=== PATIENT | female | born 1990 | race Caucasian/White ===

== ENCOUNTER 2018-06-23 17:37 | Inpatient (IN) ==
[2018-06-23] MEDS ORDERED: Naloxone Inj 0.4 MG/ML Vial IV.PUSH ONE (18:48)
[2018-06-23] MEDS ORDERED: Sod Chloride 0.9% Inj 1,000 ML IV.SIG SCH ×3 (19:00→21:45)
--- NOTE | 2018-06-23 19:04 | XR ---
EXAM DATE: 06/23/2018 7:02 PM EDT AGE/SEX: 28 years / Female INDICATIONS: Possible drug overdose and temperature 102. CLINICAL DATA: This is the patient's initial encounter. Patient reports that signs and symptoms have been present for 1 day and indicates a pain score of 0/10. MEDICAL/SURGICAL HISTORY: None. None. COMPARISON: . FINDINGS: A single AP view of the chest demonstrates the lungs to be symmetrically aerated without evidence of mass, infiltrate or effusion. The cardiomediastinal contours are unremarkable. Osseous structures a re intact. CONCLUSION: Negative examination. Electronically signed by: Twan Quiñonez MD 06/23/2018 7:03 PM EDT
--- NOTE | 2018-06-23 19:21 | ED ---
HPI General Chief complaint: Overdose Stated complaint: poss overdose/evac Time Seen by Provider: 06/23/18 18:05 Source: patient, family and EMS Mode of arrival: EMS Limitations: no limitations History of Present Illness HPI narrative: Patient is a 28-year-old female presenting to the emergency department for evaluation of a possible overdose per EMS. On initial evaluation patient is reporting head, chest pain. She reports fatigue and body aches, shortness of breath, nausea vomiting. She states this started a few hours prior to arrival. She admits to using IV heroin 20 minutes prior to arrival. Patient last used heroin this morning. Patient does not quantify her pain. Symptom onset was fairly sudden, symptoms are moderate in nature. Patient denies any other medical history. Onset (ago): hour(s) Severity: moderate Quality: aching Pain Consistency: constant Associated symptoms: chest pain, fever/chills, headaches, malaise, nausea/ vomiting, shortness of breath and weakness Treatments prior to arrival: none Related Data Home Medications Medication Instructions Recorded Confirmed No Known Home Medications 06/23/18 06/23/18 Allergies Allergy/AdvReac Type Severity Reaction Status Date / Time Fish Containing Products Allergy Severe itching Verified 06/23/18 19:39 and rash hydromorphone Allergy Severe Rash, Verified 06/23/18 19:39 Generalized morphine Allergy Severe localized Verified 06/23/18 19:39 itching and rash ondansetron Allergy Severe itching Verified 06/23/18 19:39 penicillin G Allergy Severe Swelling Verified 06/23/18 19:39 red dye Allergy Severe Rash, Verified 06/23/18 19:39 Generalized Review of Systems ROS: all other systems reviewed are negative [facility] Medical History Medical History Patient denies medical problems (Acute) Social History Social History Substance History: Active Abuse Smoking Status: Current every day smoker Tobacco Type: Cigarettes How Often Do You Have a Drink Containing Alcohol: 2 to 3 times a week Substance Abuse Detail Heroin: Substance Use Status: Active Route Used Substance Abuse: Intravenously Immunization History Tetanus Immunization: Unsure Hx Influenza Vaccine This Season: No Exam Narrative Exam Narrative: GENERAL: Well-developed, well-nourished, drowsy but arousable female. Presenting in no acute distress. SKIN: Focused skin assessment warm/dry. HEAD: Atraumatic. Normocephalic. EYES: Pupils equal and round. No scleral icterus. No injection or drainage. ENT: No nasal bleeding or discharge. Mucous membranes pink and moist. NECK: Trachea midline. No JVD. CARDIOVASCULAR: Mildly tachycardic. 1/6 systolic murmur appreciated. RESPIRATORY: No accessory muscle use. Clear to auscultation. Breath sounds equal bilaterally. GASTROINTESTINAL: Abdomen soft, non-tender, nondistended. Hepatic and splenic margins not palpable. MUSCULOSKELETAL: No obvious deformities. No clubbing. No cyanosis. No edema. NEUROLOGICAL: Drowsy but arousable. No obvious cranial nerve deficits. Motor grossly within normal limits. Normal speech. PSYCHIATRIC: Appropriate mood and affect; insight and judgment normal. Course Initial Documented Vital Signs Temperature 102.2 F H 06/23/18 18:01 Pulse Rate 100 H 06/23/18 18:01 Respiratory Rate 20 06/23/18 18:01 Blood Pressure 108/56 L 06/23/18 18:01 Pulse Oximetry 100 06/23/18 18:01 Last Documented Vital Signs Temperature 102.2 F H 06/23/18 18:01 Pulse Rate 100 H 06/23/18 18:01 Respiratory Rate 20 06/23/18 18:01 Blood Pressure 108/56 L 06/23/18 18:01 Pulse Oximetry 98 06/23/18 19:00 Medical Decision Making [facility] Narrative Medical decision making narrative: Patient is a 28-year-old female presented to emergency department for possible overdose however patient is febrile, tachycardic and mildly hypotensive. Presentation appears more consistent with sepsis at this time. Sepsis workup initiated. Patient will be given IV acetaminophen, IV fluids. She was given 0.4 mg of Narcan IV. Patient was placed on telemetry monitoring continuous pulse oximetry. Family is at bedside. CBC with bandemia, potassium 2.9, magnesium 1.3, replacement has been ordered. MRI of the thoracic and lumbar spine show no epidural abscesses. Urinalysis is not consistent with a urinary tract infection. Temp has trended down after administration of IV acetaminophen. After administration of Narcan patient is awake and alert. She was given additional 2 mg of Narcan IM. Patient will be admitted for further evaluation and workup to rule out endocarditis. Medical Screen Exam Complete: Yes Emergency Medical Condition: Yes Differential Diagnosis Differential Diagnosis: Metabolic abnormality versus sepsis versus endocarditis versus overdose versus other Medical Records Medical records reviewed: Yes I reviewed the patient's medical records. Lab Data Lab results reviewed: Yes I reviewed the patient's lab results. Result diagrams: 06/23/18 18:35 06/23/18 18:35 POC Results POC Urine Results Negative Lab Results 06/23/18 06/23/18 06/23/18 Range/Units 18:35 18:35 18:35 WBC 3.1 L (4.0-11.0) th/mm3 RBC 4.72 (4.00-5.30) mil/mm3 Hgb 12.7 (11.6-15.3) gm/dL Hct 37.5 (35.0-46.0) % MCV 79.4 L (80.0-100.0) fL MCH 26.8 L (27.0-34.0) pg MCHC 33.8 (32.0-36.0) % RDW 17.3 H (11.6-17.2) % Plt Count 131 L (150-450) th/mm3 MPV 8.6 (7.0-11.0) fL Prelim Diff (Auto) Slide review pending Neut % (Auto) 87.8 H (16.0-70.0) % Lymph % (Auto) 9.7 (9.0-44.0) % Fa[place]ner % (Auto) 1.0 (0.0-8.0) % Eos % (Auto) 1.0 (0.0-4.0) % Baso % (Auto) 0.5 (0.0-2.0) % Neut # (Auto) 2.7 (1.8-7.7) th/mm3 Lymph # (Auto) 0.3 L (1.0-4.8) th/mm3 [place]ner # (Auto) 0.0 (0.0-0.9) th/mm3 Eos # (Auto) 0.0 (0.0-0.4) th/mm3 Baso # (Auto) 0.0 (0.0-0.2) th/mm3 WBC Differential Manual diff final Seg Neuts % (Manual) 77 H (16-70) % Band Neuts % (Manual) 8 H (0-6) % Lymphocytes % (Manual) 13 (9-44) % Monocytes % (Manual) 1 (0-8) % Basophils % (Manual) 1 (0-2) % Abs Neuts (Manual) 2.6 (1.8-7.7) th/mm3 Differential Comment . Toxic Granulation 1+ H (None) Toxic Vacuolation Present H (None) Platelet Estimate Low L (Normal) Platelet Morphology Enlarged H (Normal) Acanthocytes (Spur) Occ H (None) PT 12.1 H (9.8-11.6) sec INR 1.2 Ratio APTT 30.2 H (24.3-30.1) sec Sodium 133 L (136-145) meq/L Potassium 2.9 L* (3.5-5.1) meq/L Chloride 96 L (98-107) meq/L Carbon Dioxide 24.3 (21.0-32.0) meq/L Anion Gap 13 (5-15) meq/L BUN 9 (7-18) mg/dL Creatinine 0.93 (0.50-1.00) mg/dL Estimated GFR 72 L (>89) mL/min Random Glucose 77 (74-106) mg/dL Lactic Acid (0.4-2.0) mmol/L Calcium 8.3 L (8.5-10.1) mg/dL Magnesium 1.3 L (1.5-2.5) mg/dL Total Bilirubin 1.4 H (0.2-1.0) mg/dL AST 32 (15-37) U/L ALT 25 (10-53) U/L Alkaline Phosphatase 165 H (45-117) U/L Total Creatine Kinase 162 (26-192) U/L CK-MB (CK-2) 1.7 (0.5-3.6) ng/mL Troponin I Less than 0.02 L (0.02-0.05) ng/mL Total Protein 6.6 (6.4-8.2) g/dL Albumin 2.8 L (3.4-5.0) g/dL Urine Color (Yellw/Straw) Urine Clarity (Clear) Urine pH (5.0-8.5) Ur Specific [place] (1.002-1.035) Urine Protein (Neg-Trace) mg/dL Urine Glucose (UA) (Negative) mg/dL Urine Ketones (Negative) mg/dL Urine Occult Blood (Negative) Urine Nitrate (Negative) Urine Bilirubin (Negative) Urine Urobilinogen (Less than 2) mg/dL Ur Leukocyte Esterase (Negative) Urine RBC (0-3) /hpf Urine WBC (0-5) /hpf Ur Squamous Epith Cells (0-5) /hpf Urine Mucus (Occasional) /lpf Micro UA Comment Ur Microscopic Review Urine Culture Comments 06/23/18 06/23/18 Range/Units 18:35 19:50 WBC (4.0-11.0) th/mm3 RBC (4.00-5.30) mil/mm3 Hgb (11.6-15.3) gm/dL Hct (35.0-46.0) % MCV (80.0-100.0) fL MCH (27.0-34.0) pg MCHC (32.0-36.0) % RDW (11.6-17.2) % Plt Count (150-450) th/mm3 MPV (7.0-11.0) fL Prelim Diff (Auto) Neut % (Auto) (16.0-70.0) % Lymph % (Auto) (9.0-44.0) % Faulkner % (Auto) (0.0-8.0) % Eos % (Auto) (0.0-4.0) % Baso % (Auto) (0.0-2.0) % Neut # (Auto) (1.8-7.7) th/mm3 Lymph # (Auto) (1.0-4.8) th/mm3 [place]ner # (Auto) (0.0-0.9) th/mm3 Eos # (Auto) (0.0-0.4) th/mm3 Baso # (Auto) (0.0-0.2) th/mm3 WBC Differential Seg Neuts % (Manual) (16-70) % Band Neuts % (Manual) (0-6) % Lymphocytes % (Manual) (9-44) % Monocytes % (Manual) (0-8) % Basophils % (Manual) (0-2) % Abs Neuts (Manual) (1.8-7.7) th/mm3 Differential Comment Toxic Granulation (None) Toxic Vacuolation (None) Platelet Estimate (Normal) Platelet Morphology (Normal) Acanthocytes (Spur) (None) PT (9.8-11.6) sec INR Ratio APTT (24.3-30.1) sec Sodium (136-145) meq/L Potassium (3.5-5.1) meq/L Chloride (98-107) meq/L Carbon Dioxide (21.0-32.0) meq/L Anion Gap (5-15) meq/L BUN (7-18) mg/dL Creatinine (0.50-1.00) mg/dL Estimated GFR (>89) mL/min Random Glucose (74-106) mg/dL Lactic Acid 2.3 H (0.4-2.0) mmol/L Calcium (8.5-10.1) mg/dL Magnesium (1.5-2.5) mg/dL Total Bilirubin (0.2-1.0) mg/dL AST (15-37) U/L ALT (10-53) U/L Alkaline Phosphatase (45-117) U/L Total Creatine Kinase (26-192) U/L CK-MB (CK-2) (0.5-3.6) ng/mL Troponin I (0.02-0.05) ng/mL Total Protein (6.4-8.2) g/dL Albumin (3.4-5.0) g/dL Urine Color Yellow (Yellw/Straw) Urine Clarity Clear (Clear) Urine pH 6.0 (5.0-8.5) Ur Specific [place] 1.008 (1.002-1.035) Urine Protein Negative (Neg-Trace) mg/dL Urine Glucose (UA) Negative (Negative) mg/dL Urine Ketones Negative (Negative) mg/dL Urine Occult Blood Negative (Negative) Urine Nitrate Negative (Negative) Urine Bilirubin Negative (Negative) Urine Urobilinogen 4 or greater (Less than 2) mg/dL Ur Leukocyte Esterase Negative (Negative) Urine RBC 1 (0-3) /hpf Urine WBC 2 (0-5) /hpf Ur Squamous Epith Cells 1 (0-5) /hpf Urine Mucus Few H (Occasional) /lpf Micro UA Comment Culture not ind Ur Microscopic Review Not Reportable Urine Culture Comments Culture not ind Imaging Data Radiologist's impression: Chest X-Ray 06/23/18 18:12 CONCLUSION: Negative examination. Lumbar Spine MRI 06/23/18 19:26 CONCLUSION: 1. No evidence of enhancing fluid collection to suggest abscess. 2. Degenerative disc disease at L5-S1. Thoracic Spine MRI 06/23/18 19:26 CONCLUSION: 1. Negative MR Thoracic Spine with and without contrast. 2. No evidence of enhancing fluid collection to suggest abscess. Discharge Plan Discharge Disposition Patient Disposition: 30 Still Patient Discharge Condition Condition: Stable Discharge Details Diagnosis: Sepsis, Overdose, Acute hypokalemia, Hypomagnesemia, Bandemia without diagnosis of specific infection, IVDU (intravenous drug user) Physicians Team ED Provider: Kenia Salazar ED Midlevel Provider: Clair Bridges Primary Care Provider: Dilip Robbins Rxs /Orders / Referrals /Forms Prescriptions: No Action No Known Home Medications RF: 0 Status ED Status: Admitted Patient
[2018-06-23 19:34] LABS: Activated Partial Thrombo Time 30.2 sec (24.3-30.1); INR 1.2 Ratio; Prothrombin Time 12.1 sec (9.8-11.6)
[2018-06-23 19:52] LABS: Alanine Aminotransferase 25 U/L (10-53); Albumin 2.8 g/dL (3.4-5.0); Alkaline Phosphatase 165 U/L (45-117); Anion Gap 13 meq/L (5-15); Aspartate Aminotransferase 32 U/L (15-37); Blood Urea Nitrogen 9 mg/dL (7-18); Calcium 8.3 mg/dL (8.5-10.1); Carbon Dioxide 24.3 meq/L (21.0-32.0); Chloride 96 meq/L (98-107); Creatine Kinase 162 U/L (26-192); Glomerular Filtration Rate 72 mL/min (>89); Glucose,Random 77 mg/dL (74-106); Magnesium 1.3 mg/dL (1.5-2.5); Sodium 133 meq/L (136-145); Total Protein 6.6 g/dL (6.4-8.2)
[2018-06-23 19:56] LABS: Baso % (Auto) 0.5 % (0.0-2.0); Hematocrit 37.5 % (35.0-46.0); Hemoglobin 12.7 gm/dL (11.6-15.3); Lymph # (Auto) 0.3 th/mm3 (1.0-4.8); Lymph % (Auto) 9.7 % (9.0-44.0); Mean Corpuscular HGB Conc 33.8 % (32.0-36.0); Mean Corpuscular Hemoglobin 26.8 pg (27.0-34.0); Mean Corpuscular Volume 79.4 fL (80.0-100.0); Mean Platelet Volume 8.6 fL (7.0-11.0); Neut # (Auto) 2.7 th/mm3 (1.8-7.7); Neut % (Auto) 87.8 % (16.0-70.0); Platelet Count 131 th/mm3 (150-450); Red Blood Count 4.72 mil/mm3 (4.00-5.30); Red Cell Distribution Width 17.3 % (11.6-17.2); White Blood Count 3.1 th/mm3 (4.0-11.0)
[2018-06-23 19:57] LABS: Potassium 2.9 meq/L (3.5-5.1)
[2018-06-23] MEDS ORDERED: Magnesium Sulfate Inj 2 GM in Sodium Chlor 0.9% Inj 96 ML IV.SIG ONE (19:58)
[2018-06-23] MEDS ORDERED: Vancomycin Inj 1 GM/200 ML PIGGYBACK IV.SIG ONE (20:04)
[2018-06-23 20:06] LABS: Lymphocytes 13 % (9-44); Monocytes 1 % (0-8); Toxic Granulation 1+; Toxic Vacuolation Present
[2018-06-23 20:09] LABS: Acanthocytes Occ
[2018-06-23] MEDS ORDERED: Vancomycin Inj 1,000 MG in Sodium Chlor 0.9% Inj 250 ML IV.SIG ONE (20:15)
[2018-06-23 20:22] LABS: Creatine Kinase MB 1.7 ng/mL (0.5-3.6)
[2018-06-23 20:24] LABS: Bilirubin,Urine Negative (Negative); Clarity,Urine Clear (Clear); Color,Urine Yellow (Yellw/Straw); Glucose,Urine (UA) Negative (Negative); Leukocyte Esterase,Urine Negative (Negative); Mucus,Urine Few /lpf (Occasional); Nitrite,Urine Negative (Negative); Specific Gravity,Urine 1.008 (1.002-1.035); Squamous Epithelial Cell,Urine 1 /hpf (0-5); Urobilinogen,Urine 4 or Greater mg/dL (Less than 2)
[2018-06-23] MEDS ORDERED: Gadobutrol PF 7.5 MMOL/7.5 ML Vial (for RAD) IV.SIG ONE (20:51)
--- NOTE | 2018-06-23 21:07 | MR ---
EXAM DATE: 06/23/2018 8:56 PM EDT AGE/SEX: 28 years / Female INDICATIONS: Abscess. CLINICAL DATA: This is the patient's initial encounter. Patient reports that signs and symptoms have been present for 1 day and indicates a pain score of 0/10. MEDICAL/SURGICAL HISTORY: . IVDU. . Liver surgery. COMPARISON: . TECHNIQUE: Multiplanar, multisequence MRI of the thoracic spine was performed without and with 6 ml Gadavist (gadobutrol) contrast as a single exam dose. FINDINGS: Vertebrae: Normal vertebral body height. Homogeneous marrow signal. Alignment: Normal. Cord: Normal position and configuration. Post Contrast: No abnormal areas of enhancement are seen in the cord, dural or paraspinal regions. N o enhancing fluid collection to suggest abscess. T1-T2: The thecal sac has a normal diameter. No evidence of disc bulge or protrusion. T2-T3: The thecal sac has a normal diameter. No evidence of disc bulge or protrusion. T3-T4: The thecal sac has a normal diameter. No evidence of disc bulge or protrusion. T4-T5: The thecal sac has a normal diameter. No evidence of disc bulge or protrusion. T5-T6: The thecal sac has a normal diameter. No evidence of disc bulge or protrusion. T6-T7: The thecal sac has a normal diameter. No evidence of disc bulge or protrusion. T7-T8: The thecal sac has a normal diameter. No evidence of disc bulge or protrusion. T8-T9: The thecal sac has a normal diameter. No evidence of disc bulge or protrusion. T9-T10: The thecal sac has a normal diameter. No evidence of disc bulge or protrusion. T10-T11: The thecal sac has a normal diameter. No evidence of disc bulge or protrusion. T11-T12: The thecal sac has a normal diameter. No evidence of disc bulge or protrusion. T12-L1: The thecal sac has a normal diameter. No evidence of disc bulge or protrusion. CONCLUSION: 1. Negative MR Thoracic Spine with and without contrast. 2. No evidence of enhancing fluid collection to suggest abscess. Electronically signed by: Twna Quiñonez MD 06/23/2018 9:06 PM EDT
--- NOTE | 2018-06-23 21:12 | MR ---
EXAM DATE: 06/23/2018 8:53 PM EDT AGE/SEX: 28 years / Female INDICATIONS: Abscess. CLINICAL DATA: This is the patient's initial encounter. Patient reports that signs and symptoms have been present for 1 day and indicates a pain score of 0/10. MEDICAL/SURGICAL HISTORY: . IVDU. . Liver surgery. COMPARISON: . TECHNIQUE: Multiplanar, multisequence MRI examination of the lumbar spine was performed without and with 6 ml Gadavist (gadobutrol) contrast as a single exam dose. FINDINGS: The most caudal-appearing lumbar vertebra is numbered as L5. Vertebra: Homogeneous signal. Normal alignment. Conus: Normal level and configuration. Post Contrast: No abnormal areas of contrast enhancement are seen. T12-L1: The thecal sac has a normal diameter. No evidence of disc bulge or protrusion. The neural foramina are patent bilaterally. L1-L2: The thecal sac has a normal diameter. No evidence of disc bulge or protrusion. The neural foramina are patent bilaterally. L2-L3: The thecal sac has a normal diameter. No evidence of disc bulge or protrusion. The neural foramina are patent bilaterally. L3-L4: The thecal sac has a normal diameter. No evidence of disc bulge or protrusion. The neural foramina are patent bilaterally. L4-L5: The thecal sac has a normal diameter. No evidence of disc bulge or protrusion. The neural foramina are patent bilaterally. L5-S1: There is loss of disc height and signal consistent with degenerative disc disease. No spinal stenosis or focal disc herniation is noted. Minimal diffuse disc bulge is noted. The bilateral neuro foramina are patent. CONCLUSION: 1. No evidence of enhancing fluid collection to suggest abscess. 2. Degenerative disc disease at L5-S1. Electronically signed by: Twan Quiñonez MD 06/23/2018 9:11 PM EDT
[2018-06-23] MEDS ORDERED: Vancomycin Consult Pharmacy OTHER PRN (22:06)
[2018-06-23] MEDS ORDERED: Bisacodyl 10 MG Supp RECTAL PRN (22:06)
[2018-06-23] MEDS: Potassium Chlor 20 mEq Premix 20 MEQ/100 ML PIGGYBACK IV.SIG SCH ×2 (22:07→23:54)
[2018-06-23] MEDS ORDERED: Sod Chloride 0.9% Inj 1,000 ML IV.CONT SCH (22:15)
--- NOTE | 2018-06-23 22:17 | P.HP ---
History of Present Illness Service: [place] Primary Care Physician: Dilip Robbins MD History of Present Illness: 28-year-old female with a past medical history significant for IV drug abuse presents to the emergency department for evaluation of possible overdose. The patient reports that she was using IV heroin earlier today when she was afraid that she was overdosing. She had her boyfriend called 911. She was brought to the emergency department for further evaluation. She was given 0.4 of Narcan IV and an additional 0.2 of Narcan IM. The patient was found to be febrile in the emergency department. She is admitted for sepsis and rule out endocarditis. The patient denies chest pain/shortness of breath. No abdominal pain. No nausea/vomiting/diarrhea. No dysuria. Positive fever. No back pain. No lateralizing signs/symptoms. Review of Systems All other systems reviewed negative except as stated in HPI [facility] - History History Provided By: Patient - Medical History Medical History: Medical History (Last Reviewed 06/23/18 @ 19:20 by BASILIA Baker) Patient denies medical problems - Surgical History Surgical History: Surgical History (Last Updated 06/23/18 @ 22:12 by Rachna Garza MD) No history of previous surgery - Family History Family History: Family History (Last Updated 06/23/18 @ 22:12 by Rachna Garza MD) Other Family history normal - Tobacco History Tobacco Use In Past 30 Days: Yes Smoking Status: Current every day smoker Tobacco Type: Cigarettes - Alcohol History How Often Do You Have a Drink Containing Alcohol: 2 to 3 times a week - Substance Use History Substance History: Active Abuse - Substance Use Type Heroin Status: Active Route Used: Intravenously - Immunization History Tetanus Immunization: Unsure Hx Influenza Vaccine This Season: No Medications and Allergies Active Medications: Active Medications Acetaminophen (Tylenol) 650 mg PO Q4H PRN PRN Reason: Temp > 100.4 Sodium Chloride (Ns Inj) 1,000 mls @ 0 mls/hr IV.SIG BOLUS HA Last Infusion: 06/23/18 22:07 Dose: Infused Sodium Chloride (Ns Inj) 1,000 mls @ 0 mls/hr IV.SIG BOLUS HA Last Admin: 06/23/18 22:07 Dose: 999 mls/hr Potassium Chloride (Kcl 20 Meq Premix Inj) 20 meq in 100 mls @ 50 mls/hr IV.SIG Q2H HA Stop: 06/23/18 23:59 Last Admin: 06/23/18 22:07 Dose: 50 mls/hr Sodium Chloride (Ns Inj) 1,000 mls @ 0 mls/hr IV.SIG BOLUS HA Allergies Allergy/AdvReac Type Severity Reaction Status Date / Time Fish Containing Products Allergy Severe itching Verified 06/23/18 19:39 and rash hydromorphone Allergy Severe Rash, Verified 06/23/18 19:39 Generalized morphine Allergy Severe localized Verified 06/23/18 19:39 itching and rash ondansetron Allergy Severe itching Verified 06/23/18 19:39 penicillin G Allergy Severe Swelling Verified 06/23/18 19:39 red dye Allergy Severe Rash, Verified 06/23/18 19:39 Generalized Home Medications Medication Instructions Recorded Confirmed Type No Known Home Medications 06/23/18 06/23/18 History Exam Vital signs: Vital Signs 06/23/18 18:01 06/23/18 19:00 Temperature 102.2 F H Pulse Rate 100 H Respiratory Rate 20 Blood Pressure 108/56 L Pulse Oximetry 100 98 Intake & Output 06/23/18 06/23/18 06/24/18 06:59 18:59 06:59 Intake Total 1000 / 1000 Balance 1000 / 1000 Intake: IV 1000 / 1000 NS Inj 1,000 ML @ Wide Open IV. 1000 / 1000 SIG BOLUS HA Rx#:[id number] Narrative: Gen.: No acute distress Head: Normocephalic. Atraumatic. EENT: Pupils equal round and reactive to light. Nose without drainage. Airway intact. Throat without injection. Cardiovascular: Regular rate and rhythm. No murmurs, rubs or gallops. Respiratory: Lungs clear to auscultation bilaterally. No wheezes or rhonchi. Abdomen: Soft, nontender, nondistended. No peritoneal signs. Musculoskeletal: No gross deformities. No edema. Skin: No obvious rashes or erythema. Neuro: Sensory and motor grossly intact. Cranial nerves II through XII grossly intact. Results - Labs CBC & Chem 7: 06/23/18 18:35 06/23/18 18:35 Labs: Laboratory Results - last 24 hr 06/23/18 06/23/18 06/23/18 18:35 18:35 18:35 WBC 3.1 L RBC 4.72 Hgb 12.7 Hct 37.5 MCV 79.4 L MCH 26.8 L MCHC 33.8 RDW 17.3 H Plt Count 131 L MPV 8.6 Prelim Diff (Auto) Slide review pending Neut % (Auto) 87.8 H Lymph % (Auto) 9.7 [place] % (Auto) 1.0 Eos % (Auto) 1.0 Baso % (Auto) 0.5 Neut # (Auto) 2.7 Lymph # (Auto) 0.3 L [place] # (Auto) 0.0 Eos # (Auto) 0.0 Baso # (Auto) 0.0 WBC Differential Manual diff final Seg Neuts % (Manual) 77 H Band Neuts % (Manual) 8 H Lymphocytes % (Manual) 13 Monocytes % (Manual) 1 Basophils % (Manual) 1 Abs Neuts (Manual) 2.6 Differential Comment . Toxic Granulation 1+ H Toxic Vacuolation Present H Platelet Estimate Low L Platelet Morphology Enlarged H Acanthocytes (Spur) Occ H PT 12.1 H INR 1.2 APTT 30.2 H Sodium 133 L Potassium 2.9 L* Chloride 96 L Carbon Dioxide 24.3 Anion Gap 13 BUN 9 Creatinine 0.93 Estimated GFR 72 L Random Glucose 77 Lactic Acid Calcium 8.3 L Magnesium 1.3 L Total Bilirubin 1.4 H AST 32 ALT 25 Alkaline Phosphatase 165 H Total Creatine Kinase 162 CK-MB (CK-2) 1.7 Troponin I Less than 0.02 L Total Protein 6.6 Albumin 2.8 L Urine Color Urine Clarity Urine pH Ur Specific [place] Urine Protein Urine Glucose (UA) Urine Ketones Urine Occult Blood Urine Nitrate Urine Bilirubin Urine Urobilinogen Ur Leukocyte Esterase Urine RBC Urine WBC Ur Squamous Epith Cells Urine Mucus Micro UA Comment Ur Microscopic Review Urine Culture Comments 06/23/18 06/23/18 18:35 19:50 WBC RBC Hgb Hct MCV MCH MCHC RDW Plt Count MPV Prelim Diff (Auto) Neut % (Auto) Lymph % (Auto) [place] % (Auto) Eos % (Auto) Baso % (Auto) Neut # (Auto) Lymph # (Auto) [place] # (Auto) Eos # (Auto) Baso # (Auto) WBC Differential Seg Neuts % (Manual) Band Neuts % (Manual) Lymphocytes % (Manual) Monocytes % (Manual) Basophils % (Manual) Abs Neuts (Manual) Differential Comment Toxic Granulation Toxic Vacuolation Platelet Estimate Platelet Morphology Acanthocytes (Spur) PT INR APTT Sodium Potassium Chloride Carbon Dioxide Anion Gap BUN Creatinine Estimated GFR Random Glucose Lactic Acid 2.3 H Calcium Magnesium Total Bilirubin AST ALT Alkaline Phosphatase Total Creatine Kinase CK-MB (CK-2) Troponin I Total Protein Albumin Urine Color Yellow Urine Clarity Clear Urine pH 6.0 Ur Specific [place] 1.008 Urine Protein Negative Urine Glucose (UA) Negative Urine Ketones Negative Urine Occult Blood Negative Urine Nitrate Negative Urine Bilirubin Negative Urine Urobilinogen 4 or greater Ur Leukocyte Esterase Negative Urine RBC 1 Urine WBC 2 Ur Squamous Epith Cells 1 Urine Mucus Few H Micro UA Comment Culture not ind Ur Microscopic Review Not Reportable Urine Culture Comments Culture not ind - Imaging Impressions Chest X-Ray 06/23/18 18:12 CONCLUSION: Negative examination. Lumbar Spine MRI 06/23/18 19:26 CONCLUSION: 1. No evidence of enhancing fluid collection to suggest abscess. 2. Degenerative disc disease at L5-S1. Thoracic Spine MRI 06/23/18 19:26 CONCLUSION: 1. Negative MR Thoracic Spine with and without contrast. 2. No evidence of enhancing fluid collection to suggest abscess. Caprini VTE Risk Assessment Caprini VTE Risk Assessment: No/Low Risk (score <= 1) Caprini Risk Assessment Model: Point Value = 1 Point Value = 2 Point Value = 3 Point Value = 5 Age 41-60 Minor surgery BMI > 25 kg/m2 Swollen legs Varicose veins or History of unexplained or recurrent spontaneous Oral contraceptives or hormone replacement Sepsis (< 1 month) Serious lung disease, including pneumonia (< 1 month) Abnormal pulmonary function Acute myocardial infarction Congestive heart failure (< 1 month) History of inflammatory bowel disease Medical patient at bed rest Age 61-74 Arthroscopic surgery Major open surgery (> 45 min) Laparoscopic surgery (> 45 min) Malignancy Confined to bed (> 72 hours) Immobilizing plaster cast Central venous access Age >= 75 History of VTE Family history of VTE Factor V Leiden Prothrombin [id number] Lupus anticoagulant Anticardiolipin antibodies Elevated serum homocysteine Heparin-induced thrombocytopenia Other congenital or acquired thrombophilia Stroke (< 1 month) Elective arthroplasty Hip, pelvis, or leg fracture Acute spinal cord injury (< 1 month) Prophylaxis Regimen: Total Risk Factor Score Risk Level Prophylaxis Regimen 0-1 Low Early ambulation 2 Moderate Order ONE of the following: *Sequential Compression Device (SCD) *Heparin 5000 units SQ BID 3-4 Higher Order ONE of the following medications: *Heparin 5000 units SQ TID *Enoxaparin/Lovenox 40 mg SQ daily (WT < 150 kg, CrCl > 30 mL/min) *Enoxaparin/Lovenox 30 mg SQ daily (WT < 150 kg, CrCl > 10-29 mL/min) *Enoxaparin/Lovenox 30 mg SQ BID (WT < 150 kg, CrCl > 30 mL/min) AND/OR *Sequential Compression Device (SCD) 5 or more Highest Order ONE of the following medications: *Heparin 5000 units SQ TID (Preferred with Epidurals) *Enoxaparin/Lovenox 40 mg SQ daily (WT < 150 kg, CrCl > 30 mL/min) *Enoxaparin/Lovenox 30 mg SQ daily (WT < 150 kg, CrCl > 10-29 mL/min) *Enoxaparin/Lovenox 30 mg SQ BID (WT < 150 kg, CrCl > 30 mL/min) AND *Sequential Compression Device (SCD) Assessment and Plan - Plan Assessment/plan: 1. Sepsis Patient with bandemia, fever, tachycardia, elevated lactic acid Blood cultures pending Given IV drug abuse, concern for possible endocarditis Echo pending Aztreonam/vancomycin Repeat lactic acid pending 2. IV drug abuse/heroin overdose Status post Narcan Repeat Narcan as needed Cessation counseling provided 3. Hypokalemia Potassium 2.9 Status post IV repletion Monitor BMP FEN Regular diet Electrolytes: As above NS +20 KCl at 100 cc/hour
[2018-06-24] MEDS ORDERED: Vancomycin Inj 500 MG in Sodium Chlor 0.9% Inj 100 ML IV.SIG ONE (01:00)
[2018-06-24] MEDS: Acetaminophen 325 MG Tablet PO PRN ×2 (05:56→10:45)
[2018-06-24 07:31] VITALS: O2SAT 99
[2018-06-24] MEDS ORDERED: Senna/Docusate Sodium 8.6/50 MG Tablet PO SCH (09:00)
--- NOTE | 2018-06-24 09:56 | P.PNIM ---
Subjective Interval history: f/u; fever/ IVDA T max 102.2 in no acute distress. denies pain, sob, cough. Physical Exam Vital signs: Vital Signs 06/23/18 18:01 06/23/18 19:00 06/23/18 20:00 Temperature 102.2 F H Pulse Rate 100 H 94 H Respiratory Rate 20 18 Blood Pressure 108/56 L 92/59 L Pulse Oximetry 100 98 96 06/23/18 22:06 06/24/18 00:00 06/24/18 00:25 Temperature 97.6 F Pulse Rate 82 69 77 Respiratory Rate 15 18 Blood Pressure 98/55 L 95/54 L Pulse Oximetry 100 100 06/24/18 04:00 06/24/18 07:53 Temperature 97.7 F 97.3 F L Pulse Rate 67 73 Respiratory Rate 18 16 Blood Pressure 89/53 L 93/47 L Pulse Oximetry 99 Intake & Output 06/23/18 06/24/18 06/24/18 18:59 06:59 18:59 Intake Total 2850 / 2850 Balance 2850 / 2850 Weight 63.4 kg Intake: IV 2850 / 2850 Azactam Inj 1,000 MG In NS Inj 100 / 100 100 ML @ 200 mls/hr IV.SIG ONCE ONE Rx#:[id number] Magnesium Sulfate Inj 2 GM In 100 / 100 NS Inj 96 ML @ 50 mls/hr IV.SIG ONCE ONE Rx#:[id number] KCl 20 mEq Premix Inj 20 meq In 200 / 200 100 ml @ 50 mls/hr IV.SIG Q2H HA Rx#:[id number] NS Inj 1,000 ML @ Wide Open IV. 1999 SIG BOLUS [facility] Rx#:[id number] Vancomycin Inj 1,000 MG In NS 250 / 250 Inj 250 ML @ 250 mls/hr IV.SIG ONCE ONE Rx#:[id number] Vancomycin Inj 500 MG In NS Inj 100 / 100 100 ML @ 200 mls/hr IV.SIG ONCE ONE Rx#:[id number] Other: # Voids 3 Weight On Admission 63.2 kg - Constitutional no acute distress - Routine Respiratory Exam Present: CTA bilaterally - Routine Cardiovascular Exam Present: RRR - Routine Abdominal Exam Present: soft - Routine Extremities Exam Comments: no pedal edema. - Routine Neurological Exam Present: alert, oriented X3 Results - Labs CBC & Chem 7: 06/23/18 18:35 06/23/18 18:35 Laboratory Results - last 24 hr 06/23/18 06/23/18 06/23/18 18:35 18:35 18:35 WBC 3.1 L RBC 4.72 Hgb 12.7 Hct 37.5 MCV 79.4 L MCH 26.8 L MCHC 33.8 RDW 17.3 H Plt Count 131 L MPV 8.6 Prelim Diff (Auto) Slide review pending Neut % (Auto) 87.8 H Lymph % (Auto) 9.7 [place] % (Auto) 1.0 Eos % (Auto) 1.0 Baso % (Auto) 0.5 Neut # (Auto) 2.7 Lymph # (Auto) 0.3 L [place] # (Auto) 0.0 Eos # (Auto) 0.0 Baso # (Auto) 0.0 WBC Differential Manual diff final Seg Neuts % (Manual) 77 H Band Neuts % (Manual) 8 H Lymphocytes % (Manual) 13 Monocytes % (Manual) 1 Basophils % (Manual) 1 Abs Neuts (Manual) 2.6 Differential Comment . Toxic Granulation 1+ H Toxic Vacuolation Present H Platelet Estimate Low L Platelet Morphology Enlarged H Acanthocytes (Spur) Occ H PT 12.1 H INR 1.2 APTT 30.2 H Sodium 133 L Potassium 2.9 L* Chloride 96 L Carbon Dioxide 24.3 Anion Gap 13 BUN 9 Creatinine 0.93 Estimated GFR 72 L Random Glucose 77 Lactic Acid Calcium 8.3 L Magnesium 1.3 L Total Bilirubin 1.4 H AST 32 ALT 25 Alkaline Phosphatase 165 H Total Creatine Kinase 162 CK-MB (CK-2) 1.7 Troponin I Less than 0.02 L Total Protein 6.6 Albumin 2.8 L Urine Color Urine Clarity Urine pH Ur Specific [place] Urine Protein Urine Glucose (UA) Urine Ketones Urine Occult Blood Urine Nitrate Urine Bilirubin Urine Urobilinogen Ur Leukocyte Esterase Urine RBC Urine WBC Ur Squamous Epith Cells Urine Mucus Micro UA Comment Ur Microscopic Review Urine Culture Comments 06/23/18 06/23/18 06/23/18 18:35 19:50 22:30 WBC RBC Hgb Hct MCV MCH MCHC RDW Plt Count MPV Prelim Diff (Auto) Neut % (Auto) Lymph % (Auto) [place] % (Auto) Eos % (Auto) Baso % (Auto) Neut # (Auto) Lymph # (Auto) [place] # (Auto) Eos # (Auto) Baso # (Auto) WBC Differential Seg Neuts % (Manual) Band Neuts % (Manual) Lymphocytes % (Manual) Monocytes % (Manual) Basophils % (Manual) Abs Neuts (Manual) Differential Comment Toxic Granulation Toxic Vacuolation Platelet Estimate Platelet Morphology Acanthocytes (Spur) PT INR APTT Sodium Potassium Chloride Carbon Dioxide Anion Gap BUN Creatinine Estimated GFR Random Glucose Lactic Acid 2.3 H 1.7 Calcium Magnesium Total Bilirubin AST ALT Alkaline Phosphatase Total Creatine Kinase CK-MB (CK-2) Troponin I Total Protein Albumin Urine Color Yellow Urine Clarity Clear Urine pH 6.0 Ur Specific [place] 1.008 Urine Protein Negative Urine Glucose (UA) Negative Urine Ketones Negative Urine Occult Blood Negative Urine Nitrate Negative Urine Bilirubin Negative Urine Urobilinogen 4 or greater Ur Leukocyte Esterase Negative Urine RBC 1 Urine WBC 2 Ur Squamous Epith Cells 1 Urine Mucus Few H Micro UA Comment Culture not ind Ur Microscopic Review Not Reportable Urine Culture Comments Culture not ind Microbiology 06/23/18 18:40 Nasal Wash Influenza Types A,B Antigen - Final Negative for FLU A and B antigen Infection due to influenza A or B cannot be ruled out since the antigen present in the sample may be below the detection limit of the test. - Imaging Impressions Chest X-Ray 06/23/18 18:12 CONCLUSION: Negative examination. Lumbar Spine MRI 06/23/18 19:26 CONCLUSION: 1. No evidence of enhancing fluid collection to suggest abscess. 2. Degenerative disc disease at L5-S1. Thoracic Spine MRI 06/23/18 19:26 CONCLUSION: 1. Negative MR Thoracic Spine with and without contrast. 2. No evidence of enhancing fluid collection to suggest abscess. Assessment and Plan - Plan 1. SIRS Patient with bandemia, fever, tachycardia, elevated lactic acid Blood cultures pending. MRI of thoracic and lumbar spine with no abscess. Given IV drug abuse, concern for possible endocarditis Echo pending Aztreonam/vancomycin 2. IV drug abuse/heroin overdose Status post Narcan Repeat Narcan as needed Cessation counseling provided 3. Hypokalemia Potassium 2.9 Status post IV repletion Monitor BMP Discharge Planning: pending blood cultures/ echo/ clinical course.
[2018-06-24] MEDS ORDERED: Vancomycin Inj 1,250 MG in Sodium Chlor 0.9% Inj 250 ML IV.SIG SCH (12:00)
[2018-06-24 13:05] LABS: Baso % (Auto) 0.2 % (0.0-2.0); Eos % (Auto) 0.2 % (0.0-4.0); Hematocrit 34.6 % (35.0-46.0); Hemoglobin 11.4 gm/dL (11.6-15.3); Lymph # (Auto) 1.9 th/mm3 (1.0-4.8); Lymph % (Auto) 9.3 % (9.0-44.0); Mean Corpuscular HGB Conc 33.1 % (32.0-36.0); Mean Corpuscular Hemoglobin 26.7 pg (27.0-34.0); Mean Corpuscular Volume 80.8 fL (80.0-100.0); Mono # (Auto) 1.2 th/mm3 (0.0-0.9); Mono % (Auto) 5.9 % (0.0-8.0); Neut # (Auto) 16.7 th/mm3 (1.8-7.7); Neut % (Auto) 84.4 % (16.0-70.0); Platelet Count 150 th/mm3 (150-450); Red Blood Count 4.29 mil/mm3 (4.00-5.30); Red Cell Distribution Width 17.6 % (11.6-17.2); White Blood Count 19.8 th/mm3 (4.0-11.0)
--- NOTE | 2018-06-24 13:15 | ECG ---
Date Performed: 06/23/2018 Time Performed: 17:55:23 PTAGE: 28 years EKG: SINUS TACHYCARDIA WITH SHORT AL INTERVAL MINIMAL ST DEPRESSION ABNORMAL RHYTHM ECG PREVIOUS TRACING : 01/09/2010 00.42 DOCTOR: Bartolome Gama Interpretating Date/Time 06/24/2018 13:10:06
[2018-06-24 13:31] LABS: Calcium 8.2 mg/dL (8.5-10.1); Carbon Dioxide 27.1 meq/L (21.0-32.0); Potassium 3.7 meq/L (3.5-5.1)
[2018-06-24 13:55] LABS: Lymphocytes 7 % (9-44); Monocytes 4 % (0-8); Platelet Estimate Normal (Normal); Platelet Morphology Normal (Normal)
[2018-06-24 16:04] VITALS: BP 128/81; PULSE 77; RESP 18; TEMP 97.8
[2018-06-25] MEDS ORDERED: Pharmacy Ordered Lab Info OTHER ONE (11:45)
[2018-06-26] MEDS ORDERED: Pharmacy Ordered Lab Info OTHER SCH (11:45)
== END 2018-06-24 15:01 | disposition left against medical advice (07) ==
LOC: NEPE 17:37 → NEDA 21:49 → N05 23:40
PROVIDERS: ADMIT Internal Medicine; ATTEND Internal Medicine

== ENCOUNTER 2018-06-24 15:54 | Observation (INO) ==
[2018-06-24 16:34] VITALS: TEMP 97.8
[2018-06-24 16:56] VITALS: RESP 16
--- NOTE | 2018-06-24 17:04 | ED ---
HPI General Chief complaint: Weakness Stated complaint: Lythargic/Weak/Going through Withdraw History of Present Illness HPI narrative: Patient is a 28-year-old female presents to the [facility] emergency department after eloping from the main hospital. Patient apparently last night went in for a possible overdose on heroin, she states that she became lethargic after admission to the emergency department requiring Narcan. She was found to be febrile with a white count of 19,000, was felt that she needed exclusion from endocarditis as a source of her fever was not readily identifiable. Patient adds that she is having a headache now but continues to have chest tightness as well. She states she left the other hospital because it took too long to get her echocardiogram and still was not done and she was continuing antibiotics and she did not know why. She arrives with [address], one is from EMS. She states all of her other body aches have resolved but she still has headache as well as some chest tightness. Related Data Home Medications Medication Instructions Recorded Confirmed No Known Home Medications 06/23/18 06/24/18 Allergies Allergy/AdvReac Type Severity Reaction Status Date / Time Fish Containing Products Allergy Severe itching Verified 06/23/18 19:39 and rash hydromorphone Allergy Severe Rash, Verified 06/23/18 19:39 Generalized morphine Allergy Severe localized Verified 06/23/18 19:39 itching and rash ondansetron Allergy Severe itching Verified 06/23/18 19:39 penicillin G Allergy Severe Swelling Verified 06/23/18 19:39 red dye Allergy Severe Rash, Verified 06/23/18 19:39 Generalized Review of Systems ROS: all other systems reviewed are negative [facility] Medical History Medical History Patient denies medical problems (Acute) Surgical History Surgical History No history of previous surgery (Acute) Family History Family History Other Family history normal Social History Social History Substance History: Active Abuse Second Hand Smoke Exposure: Yes Smoking Status: Current every day smoker Tobacco Type: Cigarettes How Often Do You Have a Drink Containing Alcohol: Never Recent Travel in [facility] within the Last 8 Weeks: No Recent Out of Country Travel within the Last 8 Weeks: No Substance Abuse Detail Heroin: Substance Use Status: Active Route Used Substance Abuse: Intravenously Reason for Use: Feels Good Immunization History Tetanus Immunization: Unsure Hx Influenza Vaccine This Season: No Exam Narrative Exam Narrative: GENERAL: Well-developed very thin female in no obvious distress. SKIN: Focused skin assessment warm/dry. Multiple track [place] seen. No [place] nodes no splinter hemorrhages. No rash seen on her person. HEAD: Atraumatic. Normocephalic. EYES: Pupils equal and round. No scleral icterus. No injection or drainage. ENT: No nasal bleeding or discharge. Mucous membranes pink and moist. NECK: Trachea midline. No JVD. CARDIOVASCULAR: Regular rate and rhythm. No murmur appreciated. No murmurs gallops or rubs appreciated. 2+ [place] pulses in all 4 extremities per RESPIRATORY: No accessory muscle use. Clear to auscultation. Breath sounds equal bilaterally. GASTROINTESTINAL: Abdomen soft, non-tender, nondistended. Hepatic and splenic margins not palpable. MUSCULOSKELETAL: No obvious deformities. No clubbing. No cyanosis. No edema. NEUROLOGICAL: Awake and alert. No obvious cranial nerve deficits. Motor grossly within normal limits. Normal speech. PSYCHIATRIC: Appropriate mood and affect; insight and judgment normal. Course Initial Documented Vital Signs Temperature 97.8 F 06/24/18 16:26 Pulse Rate 83 06/24/18 16:26 Respiratory Rate 18 06/24/18 16:26 Blood Pressure 111/63 06/24/18 16:26 Pulse Oximetry 100 06/24/18 16:26 Last Documented Vital Signs Temperature 97.8 F 06/24/18 16:26 Pulse Rate 68 06/24/18 18:52 Respiratory Rate 16 06/24/18 18:52 Blood Pressure 113/66 06/24/18 18:52 Pulse Oximetry 100 06/24/18 18:52 Medical Decision Making [facility] Narrative Medical decision making narrative: Patient room to the emergency department, as above the patient was admitted last night for suspicion of endocarditis, blood cultures after 24 hours not shown any growth. She never received an echocardiogram. She was on vancomycin and Azactam as has penicillin allergy. White count remains significantly elevated at 17,000 longer septic. The white count is still concerning and given the previous providers concern for endocarditis I do agree that it also needs to be excluded. An echocardiogram has been ordered. On the subject of her headache the patient has not had any nuchal rigidity, CT head is negative, I do not think there is indication for lumbar puncture at this time. The patient discussed with Dr. Szymanski who will assume care and admit to the floor. Additional set of blood cultures was ordered, additional doses of vancomycin and Azactam were given. Medical Screen Exam Complete: Yes Emergency Medical Condition: Yes Differential Diagnosis Differential Diagnosis: Leukocytosis, Sirs, sepsis, bacteremia, endocarditis, meningitis seems unlikely. Lab Data Result diagrams: 06/24/18 17:15 06/24/18 17:15 POC Results POC Urine Results Negative Lab Results 06/24/18 06/24/18 06/24/18 Range/Units 17:15 17:15 17:15 CBC w Diff Auto diff final WBC 17.4 H (4.0-11.0) th/mm3 RBC 4.86 (4.00-5.30) mil/mm3 Hgb 13.2 (11.6-15.3) gm/dL Hct 39.9 (35.0-46.0) % MCV 82.1 (80.0-100.0) fL MCH 27.2 (27.0-34.0) pg MCHC 33.1 (32.0-36.0) % RDW 17.0 (11.6-17.2) % Plt Count 166 (150-450) th/mm3 MPV 9.4 (7.0-11.0) fL Neut % (Auto) 84.7 H (16.0-70.0) % Lymph % (Auto) 9.1 (9.0-44.0) % [place] % (Auto) 4.0 (0.0-8.0) % Eos % (Auto) 0.2 (0.0-4.0) % Baso % (Auto) 2.0 (0.0-2.0) % Neut # (Auto) 14.8 H (1.8-7.7) th/mm3 Lymph # (Auto) 1.6 (1.0-4.8) th/mm3 [place] # (Auto) 0.7 (0.0-0.9) th/mm3 Eos # (Auto) 0.0 (0.0-0.4) th/mm3 Baso # (Auto) 0.3 H (0.0-0.2) th/mm3 WBC Differential . Differential Comment . Sodium 141 (136-145) meq/L Potassium 3.7 (3.5-5.1) meq/L Chloride 108 H (98-107) meq/L Carbon Dioxide 25.1 (21.0-32.0) meq/L Anion Gap 8 (5-15) meq/L BUN 12 (7-18) mg/dL Creatinine 0.83 (0.50-1.00) mg/dL Estimated GFR 82 L (>89) mL/min Random Glucose 85 (74-106) mg/dL Lactic Acid 2.1 H (0.4-2.0) mmol/L Calcium 8.5 (8.5-10.1) mg/dL Total Bilirubin 0.7 (0.2-1.0) mg/dL AST 29 (15-37) U/L ALT 27 (10-53) U/L Alkaline Phosphatase 136 H (45-117) U/L Total Protein 7.4 D (6.4-8.2) g/dL Albumin 2.7 L (3.4-5.0) g/dL Urine Color (Yellw/Straw) Urine Clarity (Clear) Urine pH (5.0-8.5) Ur Specific [place] (1.002-1.035) Urine Protein (Neg-Trace) mg/dL Urine Glucose (UA) (Negative) mg/dL Urine Ketones (Negative) mg/dL Urine Occult Blood (Negative) Urine Nitrate (Negative) Urine Bilirubin (Negative) Urine Urobilinogen (Less than 2) mg/dL Ur Leukocyte Esterase (Negative) Urine RBC (0-3) /hpf Urine WBC (0-5) /hpf Ur Squamous Epith Cells (0-5) /hpf Amorphous Sediment (None) /hpf Urine Mucus (Occasional) /lpf Micro UA Comment Ur Microscopic Review Urine Culture Comments 06/24/18 Range/Units 18:45 CBC w Diff WBC (4.0-11.0) th/mm3 RBC (4.00-5.30) mil/mm3 Hgb (11.6-15.3) gm/dL Hct (35.0-46.0) % MCV (80.0-100.0) fL MCH (27.0-34.0) pg MCHC (32.0-36.0) % RDW (11.6-17.2) % Plt Count (150-450) th/mm3 MPV (7.0-11.0) fL Neut % (Auto) (16.0-70.0) % Lymph % (Auto) (9.0-44.0) % [place] % (Auto) (0.0-8.0) % Eos % (Auto) (0.0-4.0) % Baso % (Auto) (0.0-2.0) % Neut # (Auto) (1.8-7.7) th/mm3 Lymph # (Auto) (1.0-4.8) th/mm3 [place] # (Auto) (0.0-0.9) th/mm3 Eos # (Auto) (0.0-0.4) th/mm3 Baso # (Auto) (0.0-0.2) th/mm3 WBC Differential Differential Comment Sodium (136-145) meq/L Potassium (3.5-5.1) meq/L Chloride (98-107) meq/L Carbon Dioxide (21.0-32.0) meq/L Anion Gap (5-15) meq/L BUN (7-18) mg/dL Creatinine (0.50-1.00) mg/dL Estimated GFR (>89) mL/min Random Glucose (74-106) mg/dL Lactic Acid (0.4-2.0) mmol/L Calcium (8.5-10.1) mg/dL Total Bilirubin (0.2-1.0) mg/dL AST (15-37) U/L ALT (10-53) U/L Alkaline Phosphatase (45-117) U/L Total Protein (6.4-8.2) g/dL Albumin (3.4-5.0) g/dL Urine Color [place] H (Yellw/Straw) Urine Clarity Clear (Clear) Urine pH Greater/equal 9.0 H (5.0-8.5) Ur Specific [place] 1.020 (1.002-1.035) Urine Protein 30 H (Neg-Trace) mg/dL Urine Glucose (UA) Negative (Negative) mg/dL Urine Ketones Negative (Negative) mg/dL Urine Occult Blood Negative (Negative) Urine Nitrate Negative (Negative) Urine Bilirubin Negative (Negative) Urine Urobilinogen 2.0 H (Less than 2) mg/dL Ur Leukocyte Esterase Negative (Negative) Urine RBC 0-3 (0-3) /hpf Urine WBC 0-5 (0-5) /hpf Ur Squamous Epith Cells 0-5 (0-5) /hpf Amorphous Sediment Few H (None) /hpf Urine Mucus Few H (Occasional) /lpf Micro UA Comment Culture not ind Ur Microscopic Review Microscopic reviewed Urine Culture Comments Culture not ind Imaging Data Radiologist's impression: Chest X-Ray 06/24/18 16:51 CONCLUSION: Negative examination. Head CT 06/24/18 16:53 CONCLUSION: 1. Negative CT Head non contrast. . Discharge Plan Discharge Disposition Patient Disposition: 30 Still Patient Discharge Condition Condition: Stable Discharge Order Discharge Orders: AMA Discharge (Routine); Ordered 06/24/18 Ordered By: Rachna Garza Physicians Team ED Provider: Twan Lopez Primary Care Provider: UNKNOWN, Attending Provider: Micaela Szymanski Discharge Interventions Interventions: ED Discharge Assessment Last Done: 06/24/18 19:30 Vital Signs Last Done: 06/24/18 16:52 Status ED Status: Left Department Discharge Information Discharge Date/Time: 06/24/18 19:30
--- NOTE | 2018-06-24 17:15 | XR ---
EXAM DATE: 06/24/2018 5:04 PM EDT AGE/SEX: 28 years / Female INDICATIONS: Fever. Lethargic. Weakness. Going through withdraw. CLINICAL DATA: This is the patient's subsequent encounter. Patient reports that signs and symptoms h ave been present for 2 days and indicates a pain score of 0/10. MEDICAL/SURGICAL HISTORY: None. None. COMPARISON: [facility] [place], CHEST 1V SINGLE AP, 06/23/2018. . FINDINGS: A single AP view of the chest demonstrates the lungs to be symmetrically aerated without evidence of mass, infiltrate or effusion. The cardiomediastinal contours are unremarkable. Osseous structures a re intact. CONCLUSION: Negative examination. Electronically signed by: Erendira Mcfadden MD 06/24/2018 5:14 PM EDT
[2018-06-24 17:29] LABS: Baso # (Auto) 0.3 th/mm3 (0.0-0.2); Eos % (Auto) 0.2 % (0.0-4.0); Hematocrit 39.9 % (35.0-46.0); Hemoglobin 13.2 gm/dL (11.6-15.3); Lymph # (Auto) 1.6 th/mm3 (1.0-4.8); Lymph % (Auto) 9.1 % (9.0-44.0); Mean Corpuscular HGB Conc 33.1 % (32.0-36.0); Mean Corpuscular Hemoglobin 27.2 pg (27.0-34.0); Mean Corpuscular Volume 82.1 fL (80.0-100.0); Mean Platelet Volume 9.4 fL (7.0-11.0); Mono # (Auto) 0.7 th/mm3 (0.0-0.9); Neut # (Auto) 14.8 th/mm3 (1.8-7.7); Neut % (Auto) 84.7 % (16.0-70.0); Platelet Count 166 th/mm3 (150-450); Red Blood Count 4.86 mil/mm3 (4.00-5.30); White Blood Count 17.4 th/mm3 (4.0-11.0)
[2018-06-24 17:39] LABS: Chloride 108 meq/L (98-107); Potassium 3.7 meq/L (3.5-5.1); Sodium 141 meq/L (136-145)
[2018-06-24 17:42] LABS: Albumin 2.7 g/dL (3.4-5.0); Anion Gap 8 meq/L (5-15); Calcium 8.5 mg/dL (8.5-10.1); Carbon Dioxide 25.1 meq/L (21.0-32.0); Glucose,Random 85 mg/dL (74-106)
[2018-06-24 17:43] LABS: Blood Urea Nitrogen 12 mg/dL (7-18)
[2018-06-24 17:45] LABS: Alanine Aminotransferase 27 U/L (10-53); Aspartate Aminotransferase 29 U/L (15-37)
[2018-06-24 17:46] LABS: Glomerular Filtration Rate 82 mL/min (>89)
[2018-06-24 17:47] LABS: Total Protein 7.4 g/dL (6.4-8.2)
[2018-06-24 17:48] LABS: Alkaline Phosphatase 136 U/L (45-117)
[2018-06-24] MEDS ORDERED: Methadone 10 MG Tablet PO ONE (17:54)
[2018-06-24] MEDS ORDERED: Bisacodyl 10 MG Supp RECTAL PRN (17:58)
[2018-06-24] MEDS ORDERED: Acetaminophen 325 MG Tablet PO PRN (17:58)
[2018-06-24] MEDS ORDERED: Sod Chloride 0.9% Inj 1,000 ML IV.SIG SCH (18:00)
[2018-06-24] MEDS ORDERED: Sod Chloride 0.9% Inj 1,000 ML IV.CONT SCH (18:00)
--- NOTE | 2018-06-24 18:48 | CT ---
EXAM DATE: 06/24/2018 6:44 PM EDT AGE/SEX: 28 years / Female INDICATIONS: Cephalgia. CLINICAL DATA: This is the patient's initial encounter. Patient reports that signs and symptoms have been present for 2 days and indicates a pain score of 10/10. MEDICAL/SURGICAL HISTORY: . IVDU. Sepsis. None. RADIATION DOSE: 55.85 CTDI (mGy) COMPARISON: No prior exams available for comparison. TECHNIQUE: CT of the head without contrast. Using automated exposure control and adjustment of the mA and/or kV according to patient size, radiation dose was kept as low as reasonably achievable to ob tain optimal diagnostic quality images. DICOM format image data is available electronically for revi ew and comparison. FINDINGS: Cerebrum: The ventricles are normal for age. No evidence of midline shift, mass lesion, hemorrhage or acute infarction. No extraaxial fluid collections are seen. Posterior Fossa: The cerebellum and brainstem are intact. The 4th ventricle is midline. The cerebe llopontine angle is unremarkable. Extracranial: The visualized portion of the orbits is intact. Skull: The calvaria is intact. No evidence of skull fracture. CONCLUSION: 1. Negative CT Head non contrast. . Electronically signed by: Twan Quiñonez MD 06/24/2018 6:47 PM EDT
[2018-06-24 18:53] VITALS: BP 113/66; PULSE 68; O2SAT 100
[2018-06-24 19:09] LABS: Bilirubin,Urine Negative (Negative); Clarity,Urine Clear (Clear); Glucose,Urine (UA) Negative (Negative); Leukocyte Esterase,Urine Negative (Negative); Nitrite,Urine Negative (Negative); PH,Urine Greater/Equal 9.0 (5.0-8.5)
[2018-06-24 19:11] LABS: Color,Urine Orange (Yellw/Straw)
[2018-06-24 19:14] LABS: Amorphous Sediment,Urine Few /hpf; Mucus,Urine Few /lpf (Occasional); RBC,Urine 0-3 /hpf (0-3); Squamous Epithelial Cell,Urine 0-5 /hpf (0-5); WBC,Urine 0-5 /hpf (0-5)
--- NOTE | 2018-06-24 19:22 | P.HP ---
History of Present Illness Service: Hospitalist Primary Care Physician: UNKNOWN Chief Complaint: Concerned about endocarditis History of Present Illness: Ms. Phelps is a pleasant 28 year old female with a history of IVDU who eloped from [facility] to [facility] because she did not want to wait any longer to get her echocardiogram to rule out endocarditis. She was admitted to the [facility] night before due to concern over heroin OD. Patient normally uses other opioids intravenously. However, recently she used heroin and was found unresponsive, lethargic. She received Narcan in the ED at the [facility]. Blood cultures were obtained. Patient was receiving Aztreonam and Vancomycin. At the time of this interview at [facility], patient denies any chest pain, SOB, fever, chills. No changes in bladder or bowel movements. PMH: IVDU. PSH: No significant past surgical history Social hx : IVDU Family history: Mother with HTN Review of Systems All other systems reviewed negative except as stated in HPI [facility] - History History Provided By: Patient - Medical History Medical History: Medical History (Last Reviewed 06/23/18 @ 19:20 by BASILIA Baker) Patient denies medical problems - Surgical History Surgical History: Surgical History (Last Updated 06/23/18 @ 22:12 by Rachna Garza MD) No history of previous surgery - Family History Family History: Family History (Last Updated 06/23/18 @ 22:12 by Rachna Garza MD) Other Family history normal - Tobacco History Second Hand Smoke Exposure: Yes Tobacco Use In Past 30 Days: Yes (1/2PPD) Smoking Status: Current every day smoker Tobacco Type: Cigarettes - Alcohol History How Often Do You Have a Drink Containing Alcohol: Never - Substance Use History Substance History: Active Abuse - Substance Use Type Heroin Status: Active Route Used: Intravenously Reason for Use: Feels Good - Travel History Recent Travel in the [place] Within the Last 8 Weeks: No Recent Travel Out of the Country Within the Last 8 Weeks: No - Immunization History Tetanus Immunization: Unsure Hx Influenza Vaccine This Season: No Medications and Allergies Active Medications: Active Medications Acetaminophen (Tylenol) 650 mg PO Q4H PRN PRN Reason: Fever, headache, pain 1-5 Al Hydroxide/Mg Hydroxide (Milk Of Magnesia Liq) 30 ml PO Q12H PRN PRN Reason: Mild Constipation Bisacodyl (Dulcolax Supp) 10 mg RECTAL DAILY PRN PRN Reason: SEVERE CONSITIPATION Sodium Chloride (Ns Inj) 1,000 mls @ 100 mls/hr IV.CONT .Q10H HA Lactulose (Lactulose Liq) 30 ml PO DAILY PRN PRN Reason: SEVERE CONSITIPATION Sennosides (Senokot) 17.2 mg PO Q12H PRN PRN Reason: Moderate Constipation Allergies Allergy/AdvReac Type Severity Reaction Status Date / Time Fish Containing Products Allergy Severe itching Verified 06/23/18 19:39 and rash hydromorphone Allergy Severe Rash, Verified 06/23/18 19:39 Generalized morphine Allergy Severe localized Verified 06/23/18 19:39 itching and rash ondansetron Allergy Severe itching Verified 06/23/18 19:39 penicillin G Allergy Severe Swelling Verified 06/23/18 19:39 red dye Allergy Severe Rash, Verified 06/23/18 19:39 Generalized Home Medications Medication Instructions Recorded Confirmed Type No Known Home Medications 06/23/18 06/24/18 History Exam Vital signs: Vital Signs 06/24/18 16:26 06/24/18 16:52 06/24/18 17:15 Temperature 97.8 F Pulse Rate 83 82 Respiratory Rate 18 16 Blood Pressure 111/63 Pulse Oximetry 100 99 99 06/24/18 18:52 Temperature Pulse Rate 68 Respiratory Rate 16 Blood Pressure 113/66 Pulse Oximetry 100 Intake & Output 06/24/18 06/24/18 06/25/18 06:59 18:59 06:59 Intake Total 100 / 100 1000 / 1000 Balance 100 / 100 1000 / 1000 Weight 61 kg Intake: IV 100 / 100 1000 / 1000 Azactam Inj 1,000 MG In NS Inj 100 / 100 100 ML @ 200 mls/hr IV.SIG ONCE ONE Rx#:[id number] NS Inj 1,000 ML @ Wide Open IV. 1000 / 1000 SIG BOLUS HA Rx#:[id number] Narrative: GENERAL: This is a well-nourished, well-developed patient, in no apparent distress. SKIN: No rashes, ecchymoses or lesions. Warm and dry. HEAD: Atraumatic. Normocephalic. No temporal or scalp tenderness. EYES: Pupils equal round and reactive. No injection or drainage. ENT: Nose without bleeding, purulent drainage or septal hematoma. Airway patent. NECK: Trachea midline. No lymphadenopathy. Supple, nontender, no meningeal signs. CARDIOVASCULAR: Regular rate and rhythm without murmurs, gallops, or rubs. No JVD. RESPIRATORY: Clear to auscultation. Breath sounds equal bilaterally. No wheezes , rales, or rhonchi. GASTROINTESTINAL: Abdomen soft, non-tender, nondistended. No guarding. MUSCULOSKELETAL: Extremities without clubbing, cyanosis, or edema. NEUROLOGICAL: Awake and alert. Cranial nerves II through XII intact. No focal neurological deficits. Normal speech. Results - Labs CBC & Chem 7: 06/24/18 17:15 06/24/18 17:15 Labs: Laboratory Results - last 24 hr 06/24/18 06/24/18 06/24/18 17:15 17:15 17:15 CBC w Diff Auto diff final WBC 17.4 H RBC 4.86 Hgb 13.2 Hct 39.9 MCV 82.1 MCH 27.2 MCHC 33.1 RDW 17.0 Plt Count 166 MPV 9.4 Neut % (Auto) 84.7 H Lymph % (Auto) 9.1 [place] % (Auto) 4.0 Eos % (Auto) 0.2 Baso % (Auto) 2.0 Neut # (Auto) 14.8 H Lymph # (Auto) 1.6 [place] # (Auto) 0.7 Eos # (Auto) 0.0 Baso # (Auto) 0.3 H WBC Differential . Differential Comment . Sodium 141 Potassium 3.7 Chloride 108 H Carbon Dioxide 25.1 Anion Gap 8 BUN 12 Creatinine 0.83 Estimated GFR 82 L Random Glucose 85 Lactic Acid 2.1 H Calcium 8.5 Total Bilirubin 0.7 AST 29 ALT 27 Alkaline Phosphatase 136 H Total Protein 7.4 D Albumin 2.7 L Urine Color Urine Clarity Urine pH Ur Specific [place] Urine Protein Urine Glucose (UA) Urine Ketones Urine Occult Blood Urine Nitrate Urine Bilirubin Urine Urobilinogen Ur Leukocyte Esterase Urine RBC Urine WBC Ur Squamous Epith Cells Amorphous Sediment Urine Mucus Micro UA Comment Ur Microscopic Review Urine Culture Comments 06/24/18 18:45 CBC w Diff WBC RBC Hgb Hct MCV MCH MCHC RDW Plt Count MPV Neut % (Auto) Lymph % (Auto) [place] % (Auto) Eos % (Auto) Baso % (Auto) Neut # (Auto) Lymph # (Auto) [place] # (Auto) Eos # (Auto) Baso # (Auto) WBC Differential Differential Comment Sodium Potassium Chloride Carbon Dioxide Anion Gap BUN Creatinine Estimated GFR Random Glucose Lactic Acid Calcium Total Bilirubin AST ALT Alkaline Phosphatase Total Protein Albumin Urine Color [place] H Urine Clarity Clear Urine pH Greater/equal 9.0 H Ur Specific [place] 1.020 Urine Protein 30 H Urine Glucose (UA) Negative Urine Ketones Negative Urine Occult Blood Negative Urine Nitrate Negative Urine Bilirubin Negative Urine Urobilinogen 2.0 H Ur Leukocyte Esterase Negative Urine RBC 0-3 Urine WBC 0-5 Ur Squamous Epith Cells 0-5 Amorphous Sediment Few H Urine Mucus Few H Micro UA Comment Culture not ind Ur Microscopic Review Microscopic reviewed Urine Culture Comments Culture not ind - Imaging Impressions Chest X-Ray 06/24/18 16:51 CONCLUSION: Negative examination. Head CT 06/24/18 16:53 CONCLUSION: 1. Negative CT Head non contrast. . Caprini VTE Risk Assessment Caprini VTE Risk Assessment: No/Low Risk (score <= 1) Caprini Risk Assessment Model: Point Value = 1 Point Value = 2 Point Value = 3 Point Value = 5 Age 41-60 Minor surgery BMI > 25 kg/m2 Swollen legs Varicose veins or History of unexplained or recurrent spontaneous Oral contraceptives or hormone replacement Sepsis (< 1 month) Serious lung disease, including pneumonia (< 1 month) Abnormal pulmonary function Acute myocardial infarction Congestive heart failure (< 1 month) History of inflammatory bowel disease Medical patient at bed rest Age 61-74 Arthroscopic surgery Major open surgery (> 45 min) Laparoscopic surgery (> 45 min) Malignancy Confined to bed (> 72 hours) Immobilizing plaster cast Central venous access Age >= 75 History of VTE Family history of VTE Factor V Leiden Prothrombin [id number] Lupus anticoagulant Anticardiolipin antibodies Elevated serum homocysteine Heparin-induced thrombocytopenia Other congenital or acquired thrombophilia Stroke (< 1 month) Elective arthroplasty Hip, pelvis, or leg fracture Acute spinal cord injury (< 1 month) Prophylaxis Regimen: Total Risk Factor Score Risk Level Prophylaxis Regimen 0-1 Low Early ambulation 2 Moderate Order ONE of the following: *Sequential Compression Device (SCD) *Heparin 5000 units SQ BID 3-4 Higher Order ONE of the following medications: *Heparin 5000 units SQ TID *Enoxaparin/Lovenox 40 mg SQ daily (WT < 150 kg, CrCl > 30 mL/min) *Enoxaparin/Lovenox 30 mg SQ daily (WT < 150 kg, CrCl > 10-29 mL/min) *Enoxaparin/Lovenox 30 mg SQ BID (WT < 150 kg, CrCl > 30 mL/min) AND/OR *Sequential Compression Device (SCD) 5 or more Highest Order ONE of the following medications: *Heparin 5000 units SQ TID (Preferred with Epidurals) *Enoxaparin/Lovenox 40 mg SQ daily (WT < 150 kg, CrCl > 30 mL/min) *Enoxaparin/Lovenox 30 mg SQ daily (WT < 150 kg, CrCl > 10-29 mL/min) *Enoxaparin/Lovenox 30 mg SQ BID (WT < 150 kg, CrCl > 30 mL/min) AND *Sequential Compression Device (SCD) Assessment and Plan - Plan Ms. Phelps is a 28 year old female with a history of IVDU who was initially admitted to [facility] due to heroin overdose and subsequently due to her perceived slow action to complete work up (echo etc), patient decided to leave [facility] and come to [place]. Blood cultures from 06/23/2018 are negative so far. Sepsis (WBC more than 17K, lactic acid 2.1, possible endocarditis) Possible endocarditis - Blood cultures from 06/23/2018 No growth 1 day - Repeat BC pending from today - Will continue patient on Vancomycin empirically - CXR, T, L spine MRI unremarkable for any acute findings. CT head unremarkable - Echo pending. IVDU - Patient counselled. She is motivated to quit IVDU. Full code. Ambulation.
[2018-06-24] MEDS ORDERED: Vancomycin Consult Pharmacy OTHER PRN (22:45)
[2018-06-25] MEDS ORDERED: Vancomycin Inj 1,200 MG in Sodium Chlor 0.9% Inj 250 ML IV.SIG SCH ×2
--- NOTE | 2018-06-26 00:41 | ECG ---
Date Performed: 06/24/2018 Time Performed: 17:02:46 PTAGE: 28 years EKG: Sinus rhythm NORMAL ECG PREVIOUS TRACING : 06/23/2018 17.55 Compared to previous tracing, rate has decreased DOCTOR: Breezy Coy Interpretating Date/Time 06/26/2018 00:40:12
== END 2018-06-24 19:41 | disposition left against medical advice (07) ==
LOC: PHED 15:54 → PHEDA 15:54
PROVIDERS: ADMIT Hospitalist; ATTEND Hospitalist
DX: T40.1X1A Poisoning by heroin, accidental (unintentional), initial encounter; R07.89 Other chest pain; Z88.0 Allergy status to penicillin; Z91.041 Radiographic dye allergy status; A41.9 Sepsis, unspecified organism; R53.83 Other fatigue; R51 Headache; Z82.49 Family history of ischemic heart disease and other diseases of the circulatory system; F17.210 Nicotine dependence, cigarettes, uncomplicated; Z88.5 Allergy status to narcotic agent